=== PATIENT | female | born 1985 | race Caucasian/White ===

== ENCOUNTER 2016-06-29 22:12 | Emergency (ER) | payer MEDICAID ==
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
[2016-06-30] MEDS ORDERED: ACETAMINOPHEN 325 MG TABLET ONE (00:53)
[2016-06-30] MEDS ORDERED: ACETAMINOPHEN 325 MG TABLET PO ONE (01:23)
[2016-06-30 02:16] LABS: AMORPHOUS SEDIMENT,URINE TRACE /HPF; APPEARANCE,URINE CLOUDY; BILIRUBIN,URINE NEGATIVE (NEGATIVE); GLUCOSE, URINE NEGATIVE (NEGATIVE); KETONES,URINE NEGATIVE (NEGATIVE); LEUKOCYTE ESTERASE,URINE NEGATIVE (NEGATIVE); NITRITE,URINE NEGATIVE (NEGATIVE); PROTEIN,URINE NEGATIVE (NEGATIVE); URINE SPECIFIC GRAVITY 1.009; UROBILINOGEN,URINE NEGATIVE mg/dL (<2.0)
[2016-06-30 02:43] VITALS: BP 126/80
== END 2016-06-30 02:41 | disposition home or self-care (01) ==
LOC: ER 22:12
DX: O9A.213 Injury, poisoning and certain other consequences of external causes complicating pregnancy, third trimester (principal); S80.02XA Contusion of left knee, initial encounter; S30.1XXA Contusion of abdominal wall, initial encounter; Y00.XXXA Assault by blunt object, initial encounter; Y92.009 Unspecified place in unspecified non-institutional (private) residence as the place of occurrence of the external cause
CPT/HCPCS: 99284; 81001; 73560; 76805; J3490

== ENCOUNTER 2016-07-23 06:45 | Inpatient (IN) | payer MEDICAID ==
[2016-07-23 07:25] LABS: ABSOLUTE EOSINOPHILS # (AUTO) 0.1 10^3/uL (0.0-0.6); ABSOLUTE LYMPHOCYTES (AUTO) 1.5 10^3/uL (0.5-4.7); ABSOLUTE MONOCYTES (AUTO) 0.5 10^3/uL (0.1-1.4); ABSOLUTE NEUT (AUTO) 6.4 10^3/uL (1.7-8.2); BASOPHILS % (AUTO) 0.3 % (0-2); EOSINOPHILS % (AUTO) 0.8 % (0-6); HEMATOCRIT 36.4 % (36.0-47.0); HEMOGLOBIN 12.2 g/dL (12.0-15.5); HGB HCT DIFFERENCE 0.2; LYMPHOCYTES % (AUTO) 17.4 % (13-45); MEAN CORPUSCULAR HEMOGLOBIN 30.2 pg (27.0-33.4); MEAN CORPUSCULAR HGB CONC 33.4 g/dL (32.0-36.0); MEAN CORPUSCULAR VOLUME 91 fl (80-97); RED BLOOD COUNT 4.03 10^6/uL (3.72-5.28); RED CELL DISTRIBUTION WIDTH 14.1 % (11.5-14.0); SEGMENTED NEUTROPHILS % (AUTO) 75.5 % (42-78); WHITE BLOOD COUNT 8.5 10^3/uL (4.0-10.5)
[2016-07-23 07:30] LABS: AMORPHOUS SEDIMENT,URINE TRACE /HPF; APPEARANCE,URINE CLOUDY; BILIRUBIN,URINE NEGATIVE (NEGATIVE); GLUCOSE, URINE NEGATIVE (NEGATIVE); KETONES,URINE NEGATIVE (NEGATIVE); LEUKOCYTE ESTERASE,URINE TRACE (NEGATIVE); NITRITE,URINE NEGATIVE (NEGATIVE); PROTEIN,URINE NEGATIVE (NEGATIVE); URINE SPECIFIC GRAVITY 1.006; UROBILINOGEN,URINE NEGATIVE mg/dL (<2.0)
[2016-07-23] MEDS ORDERED: RINGERS SOLUTION,LACTATED 1,000 ML IV PRN ×2 (07:35→10:36)
[2016-07-23 07:58] LABS: URINE BARBITURATES SCREEN NEGATIVE; URINE METHADONE SCREEN NEGATIVE; URINE OPIATES LOW NEGATIVE; URINE PHENCYCLIDINE SCREEN NEGATIVE
[2016-07-23] MEDS ORDERED: CEFAZOLIN 1 GM/D5W RTU 1 GM/50 ML RTUPB IV PRN (08:00)
[2016-07-23] MEDS ORDERED: RINGERS SOLUTION,LACTATED 1,000 ML IV ONE (08:00)
[2016-07-23] MEDS ORDERED: RINGERS SOLUTION,LACTATED 2,000 ML IV ONE (08:00)
[2016-07-23] MEDS ORDERED: MIDAZOLAM 2 MG/2 ML INJ ONE ×2 (09:16→09:17)
[2016-07-23] MEDS ORDERED: OXYTOCIN 10 UNIT/ML VIAL ONE (09:16)
[2016-07-23] MEDS ORDERED: ACETAMINOPHEN 100 ML IV ONE (09:17)
[2016-07-23] MEDS ORDERED: OXYTOCIN/NORMAL SALINE 20 UNIT/1,000 ML RTUINJ ONE (09:17)
[2016-07-23] MEDS ORDERED: EPHEDRINE SULFATE INJ 50 MG/1 ML AMPULE ONE (09:17)
[2016-07-23] MEDS ORDERED: METHYLERGONOVINE MALEATE INJ/PF 0.2 MG/1 ML AMPULE ONE (09:17)
[2016-07-23] MEDS ORDERED: DIPHENHYDRAMINE HCL 50 MG/ML VIAL IV PRN (09:29)
[2016-07-23] MEDS ORDERED: ONDANSETRON HCL INJ/PF 4 MG/2 ML SDV IV PRN (09:29)
[2016-07-23] MEDS ORDERED: FENTANYL CITRATE INJ/PF 100 MCG/2 ML AMPUL IV PRN ×3 (09:29)
[2016-07-23] MEDS ORDERED: MEPERIDINE HCL/PF INJ 25 MG/1 ML DISP.SYRIN IV PRN (09:29)
[2016-07-23] MEDS ORDERED: MORPHINE SULFATE 10 MG/ML INJ IV PRN (09:29)
[2016-07-23] MEDS ORDERED: OXYCODONE-ACETAMINOPHEN 5-325 MG TABLET PO PRN ×3 (09:29→10:36)
[2016-07-23] MEDS ORDERED: PROMETHAZINE HCL INJ 25 MG/1 ML VIAL IV PRN ×3 (09:29→10:36)
[2016-07-23] MEDS ORDERED: CEFAZOLIN INJ 1 GM VIAL ONE (09:47)
[2016-07-23] MEDS ORDERED: SIMETHICONE 80 MG TAB.CHEW PO PRN (10:36)
[2016-07-23] MEDS ORDERED: ACETAMINOPHEN 325 MG TABLET PO PRN (10:36)
[2016-07-23] MEDS ORDERED: HYDROMORPHONE HCL INJ/PF 2 MG/ML AMPULE IV PRN (10:36)
[2016-07-23] MEDS ORDERED: MEASLES,MUMPS&RUBELLA VACC/PF 0.5 ML VIAL SUBCUT PRN (10:36)
[2016-07-23] MEDS ORDERED: DIPH/PERTUSS(ACELL)/TETANUS VAC/PF 0.5 ML SYR (>=10YO) IM PRN (10:36)
[2016-07-23] MEDS: FENTANYL CITRATE INJ/PF 100 MCG/2 ML AMPUL ONE ×2 (10:36→10:48)
[2016-07-23] MEDS ORDERED: OXYTOCIN/NORMAL SALINE 1,000 ML IV PRN (10:36)
[2016-07-23] MEDS ORDERED: ACETAMINOPHEN 100 ML IV PRN (10:36)
--- NOTE | 2016-07-23 10:39 | PDOC DELIVERY SUMMARY ---
Delivery Summary - Maternal Hx : III Hx # Term Pregnancies: 1 DELORIS: 07/30/16 Gestational Age: 39 Ruptured Membranes: AROM Time of Rupture: 09:56 Fluids: Clear - Delivery Presentation: Face/Brow Support Person Present: Yes Location: OR : Scheduled Placenta: Within Normal Limits Delivery of Placenta Date: 07/23/16 Delivery of Placenta Time: 09:57 - Medications Type of Anesthesia:: Spinal - Infant Assess and Care Baby 1 Male Delivery of Date: 07/23/16 Delivery of Time: :57 at 1 minute: 8 at 5 minutes: 9 Preprinted Number On Band: [id number] Infant Skin to Skin: Yes Skin to Skin (Mins): 4 To Nursery At: 10:04 Mode of Transport: [facility] Weight: 2178 kg Length: 19 in - Delivery Personnel Nursery RN: JOON MARTÍNEZ RN: JUAN STALLWORTH RN: WILLIAM CHÁVEZ MD: PEDRO LUIS HERMAN Chief Digital Officer: VITALIY
--- NOTE | 2016-07-23 10:53 | Operative Report ---
Operative Report DATE OF SURGERY: 07/23/16 PREOPERATIVE DIAGNOSIS: Repeat risk of uterine rupture and tubal ligation POSTOPERATIVE DIAGNOSIS: Same OPERATION: The via low transverse uterine incision and tubal ligation with Filshie clip ANESTHESIA: Spinal TISSUE REMOVED OR ALTERED: Placenta, fallopian tubes COMPLICATIONS: None ESTIMATED BLOOD LOSS: 250 cc INTRAOPERATIVE FINDINGS: Viable male . Normal tubes and ovaries PROCEDURE: Patient was taken to the OR and placed in supine position after her spinal anesthesia. She is prepared and draped in sterile fashion. Bose was placed for drainage of the bladder. Low transverse incision was made and carried down the level of the fascia. The fascial incision was made with knife and extended bilaterally with curved Dumont scissors. The fascia was off the rectus muscles using sharp and blunt dissection. The rectus muscles are in the midline. The peritoneum was entered without incident. Bladder blade was placed in uterine segment was identified. A low transverse incision was made creating a bladder flap. Bladder blade was placed low transverse uterine incision was made with the csafe knife and extended with fingertips. The baby was delivered with some fundal pressure. Mouth and nose were suctioned free. The cord was doubly clamped and cut. Baby was passed off to the trademark affixer in attendance. The placenta was manually extracted with trailing membranes. The uterus was externalized wrapped in a moist lap sponge. Uterine contents wiped free. Uterus was closed with a running locking layer of 0 chromic suture using the second layer to imbricate the first completing a double layer closure of the uterus. The serosa was closed with a running 2-0 chromic stitch. Filshie clips were placed on both fallopian tubes at the mid portion. The pelvis was irrigated and suctioned free of fluid the uterus was replaced in the abdomen. The abdominal wall peritoneum was closed with running 2-0 chromic stitch. Fascia was closed with a running 0 Vicryl in 2 segments. Homar's layer was brought together with 0 plain gut stitch and the skin was closed with running subcuticular 4-0 undyed Vicryl stitch. The wound was dressed mother and baby did well.
[2016-07-23] MEDS: MORPHINE SULFATE 10 MG/ML INJ ONE ×2 (10:54→12:00)
[2016-07-23] MEDS: DIAZEPAM 5 MG TABLET ONE ×2 (10:55→10:59)
[2016-07-23] MEDS ORDERED: IBUPROFEN 800 MG TABLET PO SCH (12:00)
[2016-07-23] MEDS ORDERED: LIDOCAINE 2% INJ-PF (20 MG/ML) 10 ML AMPUL ONE (13:18)
[2016-07-23] MEDS ORDERED: ONDANSETRON HCL INJ/PF 4 MG/2 ML SDV ONE (13:18)
[2016-07-23] MEDS ORDERED: OXYCODONE HCL IR 5 MG TABLET PO PRN (13:58)
[2016-07-23] MEDS: KETOROLAC TROMETHAMINE INJ/PF 30 MG/1 ML SDV IV SCH ×2 (15:15→21:56)
[2016-07-23] MEDS: OXYCODONE HCL IR 5 MG TABLET PO PRN ×2 (17:38→23:16)
[2016-07-23] MEDS: DOCUSATE SODIUM 100 MG CAPSULE PO SCH (17:38)
[2016-07-23] MEDS: DIAZEPAM 5 MG TABLET PO SCH (21:56)
[2016-07-24] MEDS: OXYCODONE HCL IR 5 MG TABLET PO PRN ×4 (03:58→17:11)
[2016-07-24] MEDS: KETOROLAC TROMETHAMINE INJ/PF 30 MG/1 ML SDV IV SCH (06:23)
[2016-07-24 06:47] LABS: HEMATOCRIT 28.2 % (36.0-47.0); MEAN CORPUSCULAR HEMOGLOBIN 30.2 pg (27.0-33.4); MEAN CORPUSCULAR HGB CONC 33.4 g/dL (32.0-36.0); MEAN CORPUSCULAR VOLUME 90 fl (80-97); RED BLOOD COUNT 3.12 10^6/uL (3.72-5.28); RED CELL DISTRIBUTION WIDTH 14.1 % (11.5-14.0); WHITE BLOOD COUNT 12.1 10^3/uL (4.0-10.5)
[2016-07-24 07:07] LABS: HEMOGLOBIN 9.4 g/dL (12.0-15.5)
--- NOTE | 2016-07-24 08:42 | PDOC PROGRESS REPORT ---
Subjective-OB Subjective: Post Delivery Day: 1 30 year old. Denies any needs at this time, states lochia is stable, pain is moderately well controlled, voiding without difficulty, passing gas, tolerating diet. Physical Exam (OB) Vital Signs: Temp Pulse Resp BP Pulse Ox 98.3 F 89 16 119/68 98 07/24/16 03:44 07/24/16 03:44 07/24/16 03:44 07/24/16 03:44 07/24/16 03:44 Intake & Output 07/23/16 07/24/16 07/25/16 06:59 06:59 06:59 Intake Total 3725 Output Total 1925 Balance 1800 Weight 82.1 kg - PIH/Pre-Eclampsia Clonus: Negative Headache: Absent Epigastric Pain: No Visual Changes: No - Dressing Removed: No - opsite in place Incision: Well Approximated - Lochia Lochia Amount: Scant < 10 ml Lochia Color: Rubra/Red - Abdomen Description: Soft Hernia Present: No Fundal Description: Firm, Midline Fundal Height: u/u - u/2 Objective-Diagnostic Laboratory: 07/24/16 06:05 07/24/16 06:05 WBC 12.1 H RBC 3.12 L Hgb 9.4 L D Hct 28.2 L MCV 90 MCH 30.2 MCHC 33.4 RDW 14.1 H Plt Count 185 Assessment and Plan(PN) - Assessment and Plan (1) Status post repeat low transverse section Is this a current diagnosis for this admission?: YesPlan: routine postop care (2) History of anxiety Is this a current diagnosis for this admission?: YesPlan: d/c planning (3) Acute blood loss anemia Is this a current diagnosis for this admission?: YesPlan: ferrous sulfate increase dietary iron - Time Spent with Patient Time with patient: Less than 15 minutes Critical Time spent with patient: Less than 15 minutes Medications reviewed and adjusted accordingly: Yes - Disposition Anticipated Discharge: Home Within: within 24 hours
[2016-07-24] MEDS: DOCUSATE SODIUM 100 MG CAPSULE PO SCH ×2 (09:23→18:18)
[2016-07-24] MEDS: DIAZEPAM 5 MG TABLET PO SCH ×2 (09:23→23:46)
[2016-07-24] MEDS: PRENATAL VITAMIN W-O CA NO5/FE FUMARATE/FA CAPSULE PO SCH (09:23)
[2016-07-24] MEDS: IBUPROFEN 800 MG TABLET PO SCH ×2 (12:09→18:18)
[2016-07-24] MEDS: OXYCODONE-ACETAMINOPHEN 5-325 MG TABLET PO PRN (21:53)
[2016-07-25] MEDS: IBUPROFEN 800 MG TABLET PO SCH ×5 (00:29→23:58)
[2016-07-25] MEDS: OXYCODONE-ACETAMINOPHEN 5-325 MG TABLET PO PRN ×4 (05:31→20:31)
--- NOTE | 2016-07-25 08:32 | PDOC PROGRESS REPORT ---
Subjective-OB Subjective: Post Delivery Day: 2 30 year old. Denies any needs at this time, states pain is moderately well controlled with current meds, ambulating, passing gas, lochia is stable, voiding without difficulty. Desires d/c, but would like to stay if baby stays. Physical Exam (OB) Vital Signs: Temp Pulse Resp BP Pulse Ox 97.9 F 90 18 117/58 L 98 07/24/16 23:45 07/24/16 23:45 07/24/16 23:45 07/24/16 23:45 07/24/16 23:45 Intake & Output 07/24/16 07/25/16 07/26/16 06:59 06:59 06:59 Intake Total 3725 1900 Output Total 1925 Balance 1800 1900 Weight 82.1 kg - PIH/Pre-Eclampsia Clonus: Negative Headache: Absent Epigastric Pain: No Visual Changes: No - Dressing Removed: No - opsite in place Incision: Well Approximated - Lochia Lochia Amount: Small 10-25 ml Lochia Color: Rubra/Red - Abdomen Description: Soft, Round Hernia Present: No Fundal Description: Firm, Midline Fundal Height: u/u - u/2 Objective-Diagnostic Laboratory: 07/24/16 06:05 Assessment and Plan(PN) - Assessment and Plan (1) Status post repeat low transverse section Is this a current diagnosis for this admission?: Yes (2) History of anxiety Is this a current diagnosis for this admission?: Yes (3) Acute blood loss anemia Is this a current diagnosis for this admission?: Yes - Time Spent with Patient Medications reviewed and adjusted accordingly: Yes - Disposition Anticipated Discharge: Home
--- NOTE | 2016-07-25 08:34 | PDOC DISCHARGE SUMMARY ---
Final Diagnosis Discharge Date: 07/25/16 - Final Diagnosis (1) Status post repeat low transverse section Is this a current diagnosis for this admission?: Yes (2) History of anxiety Is this a current diagnosis for this admission?: Yes (3) Acute blood loss anemia Is this a current diagnosis for this admission?: Yes Discharge Data - Discharge Medication Home Medications: Buspirone HCl [Buspar 5 mg Tablet] 7.5 mg PO BID 07/23/16 Cyclobenzaprine HCl 5 mg PO DAILYP PRN 07/23/16 Diphenhydramine HCl [Benadryl 25 mg Capsule] 1 cap PO Q4 PRN 07/23/16 Loratadine [Claritin 10 mg Tablet] 10 mg PO DAILY 07/23/16 Vit/Iron Fumarate/FA [ Tablet] 1 each PO DAILY 07/23/16 Docusate Sodium [Colace 100 mg Capsule] 100 mg PO BID #60 capsule 07/25/16 Ferrous Sulfate [Feosol 325 mg Tablet] 325 mg PO DAILY #30 tab 07/25/16 Ibuprofen [Motrin 800 mg Tablet] 800 mg PO Q6 #60 tablet 07/25/16 Oxycodone HCl/Acetaminophen [Percocet 5-325 mg Tablet] 2 tab PO Q4HP PRN #30 tablet 07/25/16 Gestational Age: 39 Reason(s) for Admission: Ceasarean Section-Repeat, Tubal Ligation Procedures: NST Intrapartum Procedure(s): : Low Cervical, Transverse, Tubal Ligation - Data Baby 1 Male at 1 minute: 8 at 5 minutes: 9 Weight: 2178 kg Home with Mother: Yes Complications: No - Diagnosis Test Laboratory: Temp Pulse Resp BP Pulse Ox 97.9 F 90 18 117/58 L 98 07/24/16 23:45 07/24/16 23:45 07/24/16 23:45 07/24/16 23:45 07/24/16 23:45 07/23/16 07/23/16 07/24/16 06:55 07:14 06:05 RBC 4.03 3.12 L Hgb 12.2 9.4 L D Hct 36.4 28.2 L Urine Opiates Screen NEGATIVE - Discharge information/Instructions Discharge Activity: Activity As Tolerated, Balance Activity w/Rest, No Driving, No Lifting Over 10 Pounds, Pelvic Rest, Slowly Increase Activity, No tub bath, Walk Frequently Discharge Diet: Regular Disposition: HOME, SELF-CARE Follow up with: [facility] in: 1, Weeks
[2016-07-25] MEDS: DOCUSATE SODIUM 100 MG CAPSULE PO SCH ×2 (09:57→17:55)
[2016-07-25] MEDS: DIAZEPAM 5 MG TABLET PO SCH ×2 (09:57→22:11)
[2016-07-25] MEDS: PRENATAL VITAMIN W-O CA NO5/FE FUMARATE/FA CAPSULE PO SCH (09:57)
[2016-07-25] MEDS ORDERED: ALBUTEROL SULFATE HFA (90 MCG/PUFF) 200 PUFF/8.5 GM MDI IH PRN (17:24)
[2016-07-26] MEDS: OXYCODONE-ACETAMINOPHEN 5-325 MG TABLET PO PRN ×3 (03:31→16:30)
[2016-07-26] MEDS: IBUPROFEN 800 MG TABLET PO SCH ×2 (06:08→12:55)
--- NOTE | 2016-07-26 09:21 | PDOC PROGRESS REPORT ---
Subjective-OB Subjective: Post Delivery Day: 30 year old. Denies any needs at this time. Ready to go home. Physical Exam (OB) Vital Signs: Temp Pulse Resp BP Pulse Ox 97.9 F 105 H 17 120/75 100 07/26/16 07:33 07/26/16 07:33 07/26/16 07:33 07/26/16 07:33 07/26/16 07:33 Intake & Output 07/25/16 07/26/16 07/27/16 06:59 06:59 06:59 Intake Total 1900 Balance 1900 Baby 1 Male 2178 kg - PIH/Pre-Eclampsia Clonus: Negative Headache: Absent Epigastric Pain: No Visual Changes: No - Dressing Removed: Yes - opsite dressing in place Incision: Dressing Closure Type: Leonardo - Bilateral Tubal Ligation Dressing Removed: Yes Site: Open - Lochia Lochia Amount: Scant < 10 ml Lochia Color: Rubra/Red - Abdomen Description: Tender, Soft Hernia Present: No Bowel Sounds: Normoactive Flatus Presence: Present Stool: Yes Fundal Description: Firm, Midline Fundal Height: u/u - u/2 Objective-Diagnostic Laboratory: 07/24/16 06:05 Assessment and Plan(PN) - Time Spent with Patient Medications reviewed and adjusted accordingly: Yes - Disposition Anticipated Discharge: Home
--- NOTE | 2016-07-26 09:26 | PDOC DISCHARGE SUMMARY ---
Final Diagnosis Discharge Date: 07/26/16 - Final Diagnosis (1) Acute blood loss anemia Is this a current diagnosis for this admission?: Yes (2) History 20 wk IUFD Is this a current diagnosis for this admission?: Yes (3) History of anxiety Is this a current diagnosis for this admission?: Yes (4) Late onset care Is this a current diagnosis for this admission?: Yes (5) Positive GBS test Is this a current diagnosis for this admission?: Yes (6) Smoker Is this a current diagnosis for this admission?: Yes (7) Status post repeat low transverse section Is this a current diagnosis for this admission?: Yes Discharge Data - Discharge Medication Home Medications: Buspirone HCl [Buspar 5 mg Tablet] 7.5 mg PO BID 07/23/16 Cyclobenzaprine HCl 5 mg PO DAILYP PRN 07/23/16 Diphenhydramine HCl [Benadryl 25 mg Capsule] 1 cap PO Q4 PRN 07/23/16 Loratadine [Claritin 10 mg Tablet] 10 mg PO DAILY 07/23/16 Vit/Iron Fumarate/FA [ Tablet] 1 each PO DAILY 07/23/16 Docusate Sodium [Colace 100 mg Capsule] 100 mg PO BID #60 capsule 07/25/16 Ferrous Sulfate [Feosol 325 mg Tablet] 325 mg PO DAILY #30 tab 07/25/16 Ibuprofen [Motrin 800 mg Tablet] 800 mg PO Q6 #60 tablet 07/25/16 Oxycodone HCl/Acetaminophen [Percocet 5-325 mg Tablet] 2 tab PO Q4HP PRN #30 tablet 07/25/16 Gestational Age: 39 wks Reason(s) for Admission: Ceasarean Section-Repeat Procedures: Ultrasound Intrapartum Procedure(s): : Low Cervical, Transverse - Data Baby 1 Male at 1 minute: 8 at 5 minutes: 9 Weight: 2178 kg Home with Mother: Yes Complications: No - Diagnosis Test Laboratory: Temp Pulse Resp BP Pulse Ox 97.9 F 105 H 17 120/75 100 07/26/16 07:33 07/26/16 07:33 07/26/16 07:33 07/26/16 07:33 07/26/16 07:33 07/23/16 07/23/16 07/24/16 06:55 07:14 06:05 RBC 4.03 3.12 L Hgb 12.2 9.4 L D Hct 36.4 28.2 L Urine Opiates Screen NEGATIVE - Discharge information/Instructions Discharge Activity: Activity As Tolerated, Balance Activity w/Rest, No Driving, No Lifting Over 10 Pounds, No Lifting/Push/Pulling, Pelvic Rest, Slowly Increase Activity, No tub bath, Walk Frequently Discharge Diet: Regular Disposition: HOME, SELF-CARE Follow up with: [facility] in: 1, Weeks
[2016-07-26] MEDS: DIAZEPAM 5 MG TABLET PO SCH (09:43)
[2016-07-26] MEDS: PRENATAL VITAMIN W-O CA NO5/FE FUMARATE/FA CAPSULE PO SCH (09:43)
[2016-07-26] MEDS: DOCUSATE SODIUM 100 MG CAPSULE PO SCH (09:43)
[2016-07-26 16:14] VITALS: BP 132/71
== END 2016-07-26 18:40 | disposition home or self-care (01) | DRG 765 ==
LOC: 2S 06:45
PROVIDERS: ADMIT Obstetrics & Gynecology; ATTEND Obstetrics & Gynecology
PROC: 0UL70CZ Occlusion of Bilateral Fallopian Tubes with Extraluminal Device, Open Approach (ICD-10-PCS; 2016-07-23)
PROC: 4A1HXCZ Monitoring of Products of Conception, Cardiac Rate, External Approach (ICD-10-PCS; 2016-07-23)
PROC: 10D00Z1 Extraction of Products of Conception, Low, Open Approach (ICD-10-PCS; principal; 2016-07-23 09:30)
DX: O34.211 Maternal care for low transverse scar from previous cesarean delivery (principal); D62 Acute posthemorrhagic anemia; O32.3XX0 Maternal care for face, brow and chin presentation, not applicable or unspecified; O99.02 Anemia complicating childbirth; O99.824 Streptococcus B carrier state complicating childbirth; O99.344 Other mental disorders complicating childbirth; F41.9 Anxiety disorder, unspecified; O99.334 Smoking (tobacco) complicating childbirth; Z30.2 Encounter for sterilization; Z87.891 Personal history of nicotine dependence; Z3A.39 39 weeks gestation of pregnancy; Z37.0 Single live birth
CPT/HCPCS: 1961; 36415; 59025; 80307; 81001; 85025; 85027; 86850; 86900; 86901; 94799; J0131; J0690; J1170; J1885; J2210; J2250; J2270; J2405; J2590; J3010; J3490; J7120